=== PATIENT | male | born 1960 | race Caucasian/White ===

== ENCOUNTER → 2019-06-02 | Outpatient (CLI) | payer OTHER, BC | END | disposition home or self-care (01) | LOC: CFH 13:55 | PROVIDERS: ATTEND Nurse Practitioner | DX: J98.09 Other diseases of bronchus, not elsewhere classified (principal); J44.9 Chronic obstructive pulmonary disease, unspecified; G47.30 Sleep apnea, unspecified; E66.9 Obesity, unspecified; J06.9 Acute upper respiratory infection, unspecified | CPT/HCPCS: 71250 ==